=== PATIENT | male | born 1995 | race African-American/Black ===

== ENCOUNTER 2016-12-09 09:01 | Emergency (ER) | payer OTHER ==
[2016-12-09 09:10] VITALS: BP 114/67; PULSE 80; TEMP 98.4; BMI 21.1
--- NOTE | 2016-12-09 10:47 | PDOC ---
[id number] CHEST PAIN Time Seen by Provider: 12/09/16 09:29 History Source: Patient Exam Limitations: No Limitations - History of Present Illness Initial Comments: 12/09/16 10:42 My chief complaint: left-sided chest discomfort History of present illness: Patient is a 21-year-old male with no significant medical problem here today complaining of sudden left sided chest pain with movement only. Patient reports that he had been leaning into a desk area with his chest earlier to this occurring and then he started to feel discomfort with movement in his left chest wall that lasted approximately 20 minutes with movement only. Patient denies having any cough, nasal congestion, any shortness of breath or any radiation of pain down his arm. Patient reports that he worked out last night with weight. He denies any family history of sudden cardiac at young ages. Patient denies having any pain presently. 12/10/16 19:31 Timing/Duration: resolved prior to arrival (TO EXAM ROOM ) Severity: moderate (left sided ) Associated Symptoms: reports: chest pain (left sided ). denies: cough, shortness of breath Past History - Past Medical History Allergies/Adverse Reactions: Allergies Allergy/AdvReac Type Severity Reaction Status Date / Time No Known Allergies Allergy Verified 12/09/16 09:02 Home Medications: Ambulatory Orders NK [No Known Home Medication] 12/09/16 Other medical history: NONE - Psycho/Social/Smoking Cessation Hx Anxiety: No Suicidal Ideation: No Smoking History: Never smoked Have you smoked in the past 12 months: No Information on smoking cessation initiated: No Hx Alcohol Use: No Drug/Substance Use Hx: No Review of Systems - Review of Systems Able to Perform ROS?: Yes Constitutional: No: Symptoms Reported HEENTM: No: Symptoms Reported Respiratory: No: Symptoms reported Cardiac (ROS): Yes: Chest Pain (left chest wall with movement) ABD/GI: No: Symptoms Reported Musculoskeletal: No: Symptoms Reported Integumentary: No: Symptoms Reported Neurological: No: Symptoms reported *Physical Exam - Vital Signs Last Vital Signs Temp Pulse Resp BP Pulse Ox 98.4 F 80 18 114/67 100 12/09/16 09:02 12/09/16 09:02 12/09/16 09:02 12/09/16 09:02 12/09/16 09:02 - Physical Exam General Appearance: Yes: Appropriately Dressed HEENT: positive: Normal ENT Inspection Neck: negative: Tender, Lymphadenopathy (R), Lymphadenopathy (L), Rigidity, Tender lateral, Tender midline Respiratory/Chest: positive: Lungs Clear, Normal Breath Sounds. negative: Chest Tender, Respiratory Distress Cardiovascular: positive: Regular Rhythm, Regular Rate, S1, S2 Integumentary: positive: Normal Color Neurologic: positive: Alert, Normal Response, Respond to painful stimul, Responsive. negative: Numbness, Sensory Deficit (chest wall ) Heart Score/ECG Review - ECG Impressions Comment:: 12/09/16 10:[address] Vee Medical Decision Making - Medical Decision Making 12/09/16 10:44 Patient is a 21-year-old male with no significant medical problem here today complaining of sudden left sided chest pain with movement only. Patient reports that he had been leaning into a desk area with his chest just prior to this occurring and then he started to feel discomfort with movement in his left chest wall that lasted approximately 20 minutes with movement only. Patient denies having any cough, nasal congestion, any shortness of breath, palpitations , diaphoresis or any radiation of pain down his arm. Patient reports that he worked out last night with weight. 12/09/16 10:45 Resolved chest wall discomfort 12/09/16 10:46 PLAN: EKG WNL's no need for pain medication pain has subsided 12/09/16 10:48 *DC/Admit/Observation/Transfer Diagnosis at time of Disposition: Chest wall discomfort - Discharge Dispostion Disposition: HOME Condition at time of disposition: Stable - Referrals Referrals: Pranay Moise [Primary Care Provider] - - Patient Instructions Additional Instructions: Return to emergency room if pain reoccurs with any shortness of breath or radiation down left arm or palpitations continuous pain or worsening pain Follow-up with your primary care provider within the next few days Patient voiced understanding of discharge instructions and all questions were answered
--- NOTE | 2016-12-11 11:12 | EKG ---
Test Reason : Blood Pressure : / mmHG Vent. Rate : 083 BPM Atrial Rate : 083 BPM P-R Int : 152 ms QRS Dur : 074 ms QT Int : 336 ms P-R-T Axes : 039 006 029 degrees QTc Int : 394 ms POOR DATA QUALITY, INTERPRETATION MAY BE ADVERSELY AFFECTED NORMAL SINUS RHYTHM NORMAL ECG NO PREVIOUS ECGS AVAILABLE Confirmed by ESTRELLA COLEMAN MD ([id number]) on 12/11/2016 11:12:00 AM Referred By: Confirmed By:ESTRELLA COLEMAN MD
== END 2016-12-09 11:01 | disposition home or self-care (01) ==
LOC: JERFT 09:01
DX: R07.89 Other chest pain (principal)
CPT/HCPCS: 93005; 93010; 99281-25

== ENCOUNTER 2017-11-12 15:51 | Emergency (ER) | payer OTHER ==
[2017-11-12 15:56] VITALS: TEMP 98.5; BMI 21.4
--- NOTE | 2017-11-12 16:00 | PDOC ---
Rapid Medical Evaluation Chief Complaint: Pain Time Seen by Provider: 11/12/17 15:52 Medical Evaluation: Allergies Allergy/AdvReac Type Severity Reaction Status Date / Time No Known Allergies Allergy Verified 11/12/17 15:52 Vital Signs Temp Pulse Resp BP Pulse Ox 98.5 F 106 H 18 137/89 100 11/12/17 15:53 11/12/17 15:53 11/12/17 15:53 11/12/17 15:53 11/12/17 15:53 11/12/17 15:56 The patient presents with a chief complaint of: abdominal pain for two months. Worse today. Seen at [facility] and possible partial bowel obstruction on x-ray I have performed a brief in-person evaluation of this patient; Pertinent physical exam findings Diffuse abdominal tenderness with light palpation I have ordered the following: CMP, CBC, Pt/INR, Lactic, UA, UC, CTAP with contrast (IV and oral) The patient will proceed to the ED for further evaluation.
--- NOTE | 2017-11-12 16:02 | PDOC ---
History of Present Illness <Lucas Nicholson - Last Filed: 11/12/17 16:02> - General History Source: Patient Exam Limitations: No Limitations - History of Present Illness Initial Comments: 11/12/17 16:37 The patient is a 22 year old male with no significant PMH who presents to the emergency department with diffuse abdominal pain, nausea, chills, and lightheadedness that began today. The patient describes the abdominal pain as sharp and states he was in a position to help alleviate the abdominal pain. The patient reports he took one bite of food earlier today and felt nauseous immediately after. The patient denies any past surgeries. The patient denies chest pain, shortness of breath, and headache. Denies fever, vomit, diarrhea and constipation. Denies dysuria, frequency, urgency and hematuria. Allergies: NKA Past surgical history: None reported Social history: No reported alcohol, drug, or cigarette use. <Krissy Ruiz - Last Filed: 11/12/17 16:50> - General Chief Complaint: Pain Stated Complaint: ABDOMINAL PAIN/DEHYDRATION Time Seen by Provider: 11/12/17 15:52 Past History - Past Medical History COPD: No - Suicide/Smoking/Psychosocial Hx Smoking History: Never smoked Have you smoked in the past 12 months: No Information on smoking cessation initiated: No Hx Alcohol Use: No Drug/Substance Use Hx: No Substance Use Type: None <Lucas Nicholson - Last Filed: 11/12/17 16:02> <Krissy Ruiz - Last Filed: 11/12/17 16:50> - Past Medical History Allergies/Adverse Reactions: Allergies Allergy/AdvReac Type Severity Reaction Status Date / Time No Known Allergies Allergy Verified 11/12/17 15:52 Home Medications: Ambulatory Orders NK [No Known Home Medication] 12/09/16 Review of Systems - Review of Systems Able to Perform ROS?: Yes Comments:: 11/12/17 16:38 GENERAL/CONSTITUTIONAL: (+) Chills. No fever. No weakness. HEAD, EYES, EARS, NOSE AND THROAT: No change in vision. No ear pain or discharge. No sore throat. CARDIOVASCULAR: No chest pain or shortness of breath. RESPIRATORY: No cough, wheezing, or hemoptysis. GASTROINTESTINAL: (+) Nausea. (+) Diffused abdominal pain. No vomiting, diarrhea or constipation. GENITOURINARY: No dysuria, frequency, or change in urination. MUSCULOSKELETAL: No joint or muscle swelling or pain. No neck or back pain. SKIN: No rash NEUROLOGIC: (+) Lightheaded. No headache, vertigo, loss of consciousness, or change in strength/sensation. ENDOCRINE: No increased thirst. No abnormal weight change. HEMATOLOGIC/LYMPHATIC: No anemia, easy bleeding, or history of blood clots. ALLERGIC/IMMUNOLOGIC: No hives or skin allergy. <Sara,Krissy - Last Filed: 11/12/17 16:50> *Physical Exam - Vital Signs Last Vital Signs Temp Pulse Resp BP Pulse Ox 98.5 F 106 H 18 137/89 100 11/12/17 15:53 11/12/17 15:53 11/12/17 15:53 11/12/17 15:53 11/12/17 15:53 <Lucas Nicholson - Last Filed: 11/12/17 16:02> - Vital Signs Last Vital Signs Temp Pulse Resp BP Pulse Ox 98.5 F 106 H 18 137/89 100 11/12/17 15:53 11/12/17 15:53 11/12/17 15:53 11/12/17 15:53 11/12/17 15:53 - Physical Exam Comments: 11/12/17 16:40 GENERAL: Awake, alert, and fully oriented. HEAD: No signs of trauma EYES: PERRLA, EOMI, sclera anicteric, conjunctiva clear ENT: Auricles normal inspection, hearing grossly normal, nares patent, oropharynx clear without exudates. Moist mucosa NECK: Normal ROM, supple, no lymphadenopathy, JVD, or masses LUNGS: (+) Tachypnea. Respiratory distress. Breath sounds equal, clear to auscultation bilaterally. No wheezes, and no crackles HEART: Regular rate and rhythm, normal S1 and S2, no murmurs, rubs or gallops ABDOMEN:(+) Diffuse abdominal tenderness. Soft, normoactive bowel sounds. No guarding, no rebound. No masses EXTREMITIES: Normal range of motion, no edema. No clubbing or cyanosis. No cords, erythema, or tenderness NEUROLOGICAL: Cranial nerves II through XII grossly intact. Normal speech, normal gait SKIN: Warm, Dry, normal turgor, no rashes or lesions noted. <Sara,Krissy - Last Filed: 11/12/17 16:50> *DC/Admit/Observation/Transfer - Attestations Physician Attestion: 11/12/17 16:02 I, Dr. Lucas Nicholson, attest that this document has been prepared under my direction and personally reviewed by me in its entirety. I further attest, that it accurately reflects all work, treatment, procedures and medical decision -making performed by me. <Lucas Nichoslon - Last Filed: 11/12/17 16:02> - Attestations Scribe Attestion: 11/12/17 16:49 Documentation prepared by Krissy Ruiz, acting as medical laboratory scientist for Lucas Nicholson MD. <Krissy Ruiz - Last Filed: 11/12/17 16:50>
[2017-11-12] MEDS ORDERED: SODIUM CHLORIDE 1,000 ML IV STA ×2 (16:20→19:52)
[2017-11-12] MEDS ORDERED: SODIUM CHLORIDE 0.9% 1000 ML INFUS.BAG IV ONE (16:22)
[2017-11-12] MEDS ORDERED: morphine CARPU-JECT 2 MG/1 ML DISP.SYRIN IVPUSH ONE ×2 (16:22→19:34)
[2017-11-12] MEDS ORDERED: ONDANSETRON 4 MG/2 ML VIAL IVPUSH ONE (16:22)
[2017-11-12] MEDS ORDERED: morphine SULFATE 4 MG/ML VIAL ONE ×2 (16:31→19:40)
[2017-11-12] MEDS ORDERED: ONDANSETRON 4 MG/2 ML VIAL ONE ×2 (16:31→20:03)
[2017-11-12 16:51] LABS: BASOPHIL 0.1 % (0-2.0); EOSINOPHIL 0.3 % (0-4.5); MCHC 33.5 g/dl (32.0-35.9); MEAN CELL VOLUME 95.4 fl (80-96); MEAN PLT VOLUME 10.4 fl (7.5-11.1); NEUTROPHILS 82.4 % (42.8-82.8); PLATELET COUNT 183 K/MM3 (134-434); RDW 13.6 % (11.9-15.9); WHITE BLOOD COUNT 10.4 K/mm3 (4.0-10.0)
[2017-11-12 17:36] LABS: INR 1.19 (0.82-1.09); PROTHROMBIN TIME (PATIENT) 13.4 SEC (9.98-11.88)
[2017-11-12 18:00] LABS: ALBUMIN 4.4 g/dl (3.4-5.0); ANION GAP 10 (8-16); CALCIUM 9.5 mg/dL (8.5-10.1); CO2 26 mmol/L (21-32); GLUCOSE,RANDOM 75 mg/dL (74-106); SGOT/AST 20 U/L (15-37); SGPT/ALT 38 U/L (12-78)
[2017-11-12 18:02] LABS: ALK PHOS 74 U/L (45-117); BILIRUBIN,TOTAL 0.9 mg/dL (0.2-1.0); TOT PROT 8.8 g/dl (6.4-8.2)
[2017-11-12 18:39] VITALS: BP 146/88; PULSE 98
[2017-11-12] MEDS ORDERED: KETOROLAC TROMETHAMINE 30 MG/1 ML VIAL IVPUSH ONE (19:55)
[2017-11-12] MEDS ORDERED: ONDANSETRON 4 MG/2 ML VIAL IVPUSH STA (19:55)
[2017-11-12] MEDS ORDERED: KETOROLAC TROMETHAMINE 30 MG/1 ML VIAL ONE (20:03)
--- NOTE | 2017-11-12 22:26 | PDOC ---
*Physical Exam - Vital Signs Last Vital Signs Temp Pulse Resp BP Pulse Ox 98.5 F 98 H 16 146/88 95 11/12/17 15:53 11/12/17 18:38 11/12/17 18:38 11/12/17 18:38 11/12/17 18:38 ED Treatment Course - LABORATORY CBC & Chemistry Diagram: 11/12/17 16:40 11/12/17 16:10 - ADDITIONAL ORDERS Additional order review: Laboratory Results 11/12/17 11/12/17 11/12/17 21:06 16:40 16:10 PT with INR INR Sodium 138 Potassium 4.1 Chloride 102 Carbon Dioxide 26 Anion Gap 10 BUN 15 Creatinine 1.0 Creat Clearance w eGFR > 60 Random Glucose 75 Lactic Acid 0.7 3.3 H* Calcium 9.5 Total Bilirubin 0.9 D AST 20 ALT 38 Alkaline Phosphatase 74 Total Protein 8.8 H Albumin 4.4 11/12/17 16:10 PT with INR 13.40 H INR 1.19 H Sodium Potassium Chloride Carbon Dioxide Anion Gap BUN Creatinine Creat Clearance w eGFR Random Glucose Lactic Acid Calcium Total Bilirubin AST ALT Alkaline Phosphatase Total Protein Albumin 11/12/17 16:40 RBC 5.42 MCV 95.4 MCHC 33.5 RDW 13.6 MPV 10.4 Neutrophils % 82.4 Lymphocytes % 10.7 Monocytes % 6.5 Eosinophils % 0.3 Basophils % 0.1 - Medications Given in the ED: ED Medications Discontinued Medications Generic Name Dose Route Start Last Admin Trade Name Freq PRN Reason Stop Dose Admin Sodium Chloride 1,000 mls @ 1,000 mls/hr 11/12/17 16:20 11/12/17 16:42 Normal Saline - IV 11/12/17 17:19 1,000 mls/hr ASDIR STA Administration Sodium Chloride 1,000 mls @ 1,000 mls/hr 11/12/17 19:52 11/12/17 20:14 Normal Saline - IV 11/12/17 20:51 1,000 mls/hr ASDIR STA Administration Ketorolac Tromethamine 30 mg 11/12/17 19:55 11/12/17 20:14 Toradol Injection - IVPUSH 11/12/17 19:56 30 mg ONCE ONE Administration Morphine Sulfate 2 mg 11/12/17 16:22 11/12/17 16:43 Morphine Injection - IVPUSH 11/12/17 16:23 2 mg ONCE ONE Administration Morphine Sulfate 2 mg 11/12/17 19:34 11/12/17 19:45 Morphine Injection - IVPUSH 11/12/17 19:35 2 mg ONCE ONE Administration Ondansetron HCl 4 mg 11/12/17 16:22 11/12/17 16:43 Zofran Injection IVPUSH 11/12/17 16:23 4 mg ONCE ONE Administration Ondansetron HCl 4 mg 11/12/17 19:55 11/12/17 20:14 Zofran Injection IVPUSH 11/12/17 19:56 4 mg ONCE STA Administration Sodium Chloride 1,000 ml 11/12/17 16:22 11/12/17 16:43 Normal Saline - IV 11/12/17 16:23 1,000 ml ONCE ONE Administration *DC/Admit/Observation/Transfer Diagnosis at time of Disposition: Abdominal pain - Discharge Dispostion Disposition: HOME Condition at time of disposition: Stable Admit: No - Referrals Referrals: STAFF,NOT ON [Primary Care Provider] - Neno Chi MD [Staff Physician] - Yi Henriquez MD [Staff Physician] - - Patient Instructions Printed Discharge Instructions: DI for Abdominal Pain-Adult Additional Instructions: Please drink plenty of fluids. TAke medications as directed. Follow up with your doctor or the doctors provided if symptoms persist. Return if any problems - Post Discharge Activity Forms/Work/School Notes: Back to Work
== END 2017-11-12 23:00 | disposition home or self-care (01) ==
LOC: JER 15:51
PROC: 3E0337Z Introduction of Electrolytic and Water Balance Substance into Peripheral Vein, Percutaneous Approach (ICD-10-PCS; principal; 2017-11-12)
PROC: 3E033GC Introduction of Other Therapeutic Substance into Peripheral Vein, Percutaneous Approach (ICD-10-PCS; 2017-11-12)
PROC: 3E033NZ Introduction of Analgesics, Hypnotics, Sedatives into Peripheral Vein, Percutaneous Approach (ICD-10-PCS; 2017-11-12)
PROC: 3E0333Z Introduction of Anti-inflammatory into Peripheral Vein, Percutaneous Approach (ICD-10-PCS; 2017-11-12)
DX: R10.84 Generalized abdominal pain (principal)
CPT/HCPCS: 36415; 74177-TC; 80053; 83605; 85025; 85610; 99282-25